=== PATIENT | male | born 1955 | race Caucasian/White ===

== ENCOUNTER 2017-04-26 17:30 | Emergency (ER) | payer BC ==
--- NOTE | 2017-04-26 17:45 | UC ---
Throat Pain/Nasal Rojelio HPI - HPI Summary HPI Summary: 62 YEAR OLD MALE PRESENTS WITH COMPLAINS OF COUGH AND SINUS CONGESTION. - History of Current Complaint Stated Complaint: SINUSES,COUGH Time Seen by Provider: 04/26/17 17:45 - Allergies/Home Medications Allergies/Adverse Reactions: Allergies Allergy/AdvReac Type Severity Reaction Status Date / Time No Known Allergies Allergy Verified 04/26/17 17:49 Home Medications: Home Medications Amlodipine Besylate-Benazepril [Lotrel 5-20 mg] 1 cap PO DAILY 04/26/17 [ History Confirmed 04/26/17] Loratadine [Claritin 10 MG CAP] 10 mg PO DAILY 04/26/17 [History Confirmed 04/26] Metoprolol Succinate XL TAB* [Toprol XL TAB*] 50 mg PO DAILY 04/26/17 [History Confirmed 04/26/17] Pravastatin (NF) [Pravachol (NF)] 10 mg PO 1700 04/26/17 [History Confirmed 03/08] PMH/Surg Hx/FS Hx/Imm Hx - Surgical History Surgical History: Yes Surgery Procedure, Year, and Place: 2003 Colon resection - Social History Alcohol Use: None Substance Use Type: None Smoking Status (MU): Never Smoked Tobacco Review of Systems Constitutional: Negative Skin: Negative Eyes: Negative ENT: Sinus Congestion Respiratory: Cough Cardiovascular: Negative Gastrointestinal: Negative Genitourinary: Negative Motor: Negative Neurovascular: Negative Musculoskeletal: Negative Neurological: Negative Psychological: Negative All Other Systems Reviewed And Are Negative: Yes Physical Exam Triage Information Reviewed: Yes Eye Exam: Normal ENT: Positive: Pharyngeal erythema, Nasal congestion Dental Exam: Normal Neck exam: Normal Neck: Positive: 1 Respiratory: Positive: Wheezing Cardiovascular Exam: Normal Abdominal Exam: Normal Musculoskeletal Exam: Normal Neurological Exam: Normal Psychological Exam: Normal Skin Exam: Normal Throat Pain/Nasal Course/Dx - Differential Dx/Diagnosis Provider Diagnoses: SINUSITIS. COUGH Discharge - Discharge Plan Condition: Stable Disposition: HOME Prescriptions: Amoxicillin/Clavulanate TAB* [Augmentin TAB 875*] 875 mg PO BID #14 tab Patient Education Materials: Sinusitis (ED) Referrals: Brandin Waters MD [Primary Care Provider] -
[2017-04-26 17:49] VITALS: BP 130/86
== END 2017-04-26 18:14 | disposition home or self-care (01) ==
LOC: UCCORT 17:30
DX: J32.9 Chronic sinusitis, unspecified (principal); R05 Cough
CPT/HCPCS: 99212; G0463

== ENCOUNTER 2017-05-03 07:53 | Emergency (ER) | payer BC ==
[2017-05-03 08:19] VITALS: BP 119/71
--- NOTE | 2017-05-03 10:23 | UC ---
UC General HPI - HPI Summary HPI Summary: 62 yo gentleman presents for re-evaluation sinus symptoms. Reports that he just completed a 7 day augmentin script, with significant improvement in sinusitis sx, but feels that it still is not complete. Sx include - yellow nasal drainage, congestion, left facial / maxillary pain, cough. No rash. No sob / cp / palpitations. GI ok, has been tolerating augmentin well. No other sx reported. - History of Current Complaint Chief Complaint: UCRespiratory Stated Complaint: COUGH CONGESTION Time Seen by Provider: 05/03/17 08:06 Hx Obtained From: Patient Pain Intensity: 0 - Allergy/Home Medications Allergies/Adverse Reactions: Allergies Allergy/AdvReac Type Severity Reaction Status Date / Time No Known Allergies Allergy Verified 05/03/17 08:05 PMH/Surg Hx/FS Hx/Imm Hx Previously Healthy: Yes - see hpi, rx for htn, inc chol - Surgical History Surgical History: Yes Surgery Procedure, Year, and Place: 2003 Colon resection - Social History Alcohol Use: None Substance Use Type: None Smoking Status (MU): Never Smoked Tobacco Review of Systems Constitutional: Negative Skin: Negative Eyes: Negative ENT: Nasal Discharge, Sinus Congestion, Sinus Pain/Tenderness Respiratory: Cough Cardiovascular: Negative Gastrointestinal: Negative Genitourinary: Negative Motor: Negative Neurovascular: Negative Musculoskeletal: Negative Neurological: Negative Psychological: Negative All Other Systems Reviewed And Are Negative: Yes Physical Exam Triage Information Reviewed: Yes Appearance: Well-Nourished Vital Signs: Initial Vital Signs Temp 97.6 F 05/03/17 07:59 Pulse 88 05/03/17 07:59 Resp 20 05/03/17 07:59 BP 119/71 05/03/17 07:59 Pulse Ox 97 05/03/17 07:59 Vital Signs Reviewed: Yes Eye Exam: Normal - grossly normal ENT: Positive: Nasal congestion, TM dull, Other: - subj left max tenderness Neck exam: Normal Neck: Positive: Supple Respiratory Exam: Normal Respiratory: Positive: Chest non-tender, Lungs clear, Normal breath sounds, No respiratory distress Cardiovascular Exam: Normal Cardiovascular: Positive: RRR, No Murmur, Pulses Normal, Brisk Capillary Refill Abdominal Exam: Normal Musculoskeletal Exam: Normal - grossly normal Neurological Exam: Normal - nonfocal gross exam Psychological Exam: Normal - converses easily and appropriately Skin Exam: Normal - no visible or reported rash Course/Dx - Course Course Of Treatment: no new problems. I agree with extension of abx. Encouraged probiotic and / or yogurt, d/w pt. Seek medical attention if sx remain or worsen by completion of abx. Questions answered as posed to the best of my ability. - Differential Dx - Multi-Symptom Provider Diagnoses: sinusitis Discharge - Discharge Plan Condition: Stable Disposition: HOME Prescriptions: Amoxicillin/Clavulanate TAB* [Augmentin TAB 875*] 875 mg PO BID #28 tab Patient Education Materials: Sinusitis (ED) Referrals: Brandin Waters MD [Primary Care Provider] - Additional Instructions: Follow up with Dr. Waters per routine. Seek medical attention for worse or new problems, especially if symptoms not resolved in 2 weeks.
== END 2017-05-03 08:22 | disposition home or self-care (01) ==
LOC: UCCORT 07:53
DX: J32.9 Chronic sinusitis, unspecified (principal)
CPT/HCPCS: 99212; G0463

== ENCOUNTER 2019-12-21 16:14 | Emergency (ER) | payer BC ==
--- NOTE | 2019-12-21 16:37 | UC ---
Knee Pain HPI - HPI Summary HPI Summary: Patient is a 64 year old male , who present today to the urgent care with left knee for past 2 week. He denies any injury or trauma but reports that he woke up with incredible pain to left knee 2 weeks ago. There was associated swelling and pain to the point that he was limping .overall he was getting better but today he twisted it while coming on the driveway and now it's significantly worse. Painful at rest and improves with walking. Took ibuprofen 800 mg and still has lot of pain. Denies any prior history of left knee pain. He has a history of right knee medial meniscus injury status post arthroscopy. - History of Current Complaint Stated Complaint: INJURY LEFT KNEE Time Seen by Provider: 12/21/19 16:35 Hx Obtained From: Patient - Allergies/Home Medications Allergies/Adverse Reactions: Allergies Allergy/AdvReac Type Severity Reaction Status Date / Time No Known Allergies Allergy Verified 12/21/19 16:40 Home Medications: Home Medications Aspirin 81 1 tab PO DAILY 07/28/14 [History Confirmed 12/21/19] Amlodipine Besylate/Benazepril [Lotrel 5-20 mg] 1 cap PO BID 04/26/17 [History Confirmed 12/21/19] Metoprolol Succinate XL TAB* [Toprol XL TAB*] 50 mg PO DAILY 04/26/17 [History Confirmed 12/21/19] Pravastatin (NF) [Pravachol (NF)] 10 mg PO 1700 04/26/17 [History Confirmed ] PMH/Surg Hx/FS Hx/Imm Hx - Additional Past Medical History Additional PMH: Past Medical History : Hypertension, colon cancer, prostate cancer, skin cancer Past Surgical History: Colon resection in 2003 Family History : non contributory for arthritis. paternal colon cancer. Social History : No alcohol, non smoker, no drug use. Previously Healthy: Yes - Surgical History Surgical History: Yes Surgery Procedure, Year, and Place: 2003 Colon resection - Family History Known Family History: Positive: Non-Contributory - Social History Alcohol Use: None Substance Use Type: None Smoking Status (MU): Never Smoked Tobacco Review of Systems All Other Systems Reviewed And Are Negative: Yes Constitutional: Positive: Negative Skin: Positive: Negative Eyes: Positive: Negative ENT: Positive: Negative Respiratory: Positive: Negative Cardiovascular: Positive: Negative Gastrointestinal: Positive: Negative Genitourinary: Positive: Negative Motor: Positive: Negative Neurovascular: Positive: Negative Musculoskeletal: Positive: Arthralgia - left knee, Decreased ROM Neurological/Mental Status: Positive: Negative Psychological: Positive: Negative Is Patient Immunocompromised?: No Physical Exam - Summary Physical Exam Summary: Vital Signs Reviewed: Yes A+Ox3, no distress Eyes: Conjunctiva Clear ENT: Hearing grossly normal neck: supple Respiratory: Positive: No respiratory distress, No accessory muscle use Cardiovascular: skin color reflect adequate perfusion Neurological: Positive: Alert, ambulatory without difficulty Psychological: Positive: Normal Response To Family Skin: Positive: no rash, no ecchymosis Musculoskeletal exam: Gait: Walks with a antalgic gait Left Knee: Insp/Palp: No deformity. moderate effusion. Tenderness of the lateral joint line, medial joint line. Strength: Quadriceps 5/5 , No hamstring tightness. ROM: limited and and painful, 0- 90 Special Tests: limited testing due to pain . Valgus stress test at 0 and 30 degrees flexion is negative. Varus stress test at 0 and 30 degrees flexion is negative. Kelly's test is painful. Triage Information Reviewed: Yes Vital Signs Reviewed: Yes Procedures - Procedure Summary Procedure Summary: Procedure Note Left knee arthrocentesis and corticosteroid injection: I discussed risks ( including pain, infection, bleeding), benefits, and alternatives (including not injecting). Informed consent was obtained from the patient. Prior to the injection, a time out was performed. Patient was placed in the supine position. After prepping the skin with alcohol and under sterile conditions , 42 cc of straw-colored synovial fluid was drained left knee after local anesthesia with 1% lidocaine after which left knee was injected with 5cc 1% preservative free lidocaine without epinephrine, and 1cc kenalog (40mg / cc) .. Patient tolerated procedure well. No immediate complications were noted. Patient will report immediately with any signs of infection. Post injection instructions were given. Patient will apply ice to the involved area and avoid any exacerbating activities for the next few days Diagnostics - Radiology No standard instances Radiology Interpretation Completed By: Radiologist - Xrays left knee: Degenerative changes of the left knee include narrowing of the medial compartment. There is narrowing of the patellofemoral joint with sclerotic change of the articulating surfaces of the patellofemoral joint. There is superior pole osteophyte formation. On the AP view and the sunrise view, the patella appears somewhat displaced laterally. On the sunrise view there is more advanced sclerotic degenerative change of the lateral femoral condyle as well as osteophyte formation along the lateral margin of the patellofemoral joint. There is a small joint effusion. The bones are otherwise intact and anatomically aligned. IMPRESSION: Degenerative changes as described above as well as findings indicating lateral displacement of the patella. Please correlate to the patellar tracking syndrome. If the patient's symptoms persist, follow-up imaging is recommended. Knee Pain Course/Dx - Course Course Of Treatment: xrays of left knee: Degenerative changes of the left knee include narrowing of the medial compartment. There is narrowing of the patellofemoral joint with sclerotic change of the articulating surfaces of the patellofemoral joint. There is superior pole osteophyte formation. On the AP view and the sunrise view , the patella appears somewhat displaced laterally. On the sunrise view there is more advanced sclerotic degenerative change of the lateral femoral condyle as well as osteophyte formation along the lateral margin of the patellofemoral joint. There is a small joint effusion. The bones are otherwise intact and anatomically aligned. IMPRESSION: Degenerative changes as described above as well as findings indicating lateral displacement of the patella. Please correlate to the patellar tracking syndrome. If the patient's symptoms persist, follow-up imaging is recommended. Symptoms consistent with left knee joint osteoarthritis flare . We discussed further treatment options and alternatives and he opted to proceed with left knee arthrocentesis and cortical steroid injection. Procedure Note Left knee arthrocentesis and corticosteroid injection: I discussed risks ( including pain, infection, bleeding), benefits, and alternatives (including not injecting). Informed consent was obtained from the patient. Prior to the injection, a time out was performed. Patient was placed in the supine position. After prepping the skin with alcohol and under sterile conditions , 42 cc of straw-colored synovial fluid was drained left knee after local anesthesia with 1% lidocaine after which left knee was injected with 5cc 1% preservative free lidocaine without epinephrine, and 1cc kenalog (40mg / cc) .. Patient tolerated procedure well. No immediate complications were noted. Patient will report immediately with any signs of infection. Post injection instructions were given. Patient will apply ice to the involved area and avoid any exacerbating activities for the next few days Plan to have him follow-up with orthopedics - Differential Dx/Diagnosis Provider Diagnosis: Osteoarthritis of left knee Discharge ED - Sign-Out/Discharge Documenting (check all that apply): Patient Departure All imaging exams completed and their final reports reviewed: Yes - Discharge Plan Condition: Stable Disposition: HOME Patient Education Materials: Osteoarthritis (ED) Referrals: Brandin Waters MD [Primary Care Provider] - 1 Week Hansa Meeks MD [Medical Doctor] - 2 Weeks Additional Instructions: Ice and ibuprofen as needed for pain control . Follow up with your primary care doctor as scheduled on Monday Please follow up with orthopedics for the consult Patients blood pressure slightly high in Urgent care today , plan follow up with PCP for better control within 4 weeks Return to Urgent care / ER if symptoms get worse. - Billing Disposition and Condition Condition: STABLE Disposition: Home
[2019-12-21 16:40] VITALS: BP 156/91
[2019-12-21] MEDS ORDERED: Lidocaine 1% MPF ** 5 ML VIAL INJ ONE (17:28)
[2019-12-21] MEDS ORDERED: Triamcinolone Acetonide* 40 MG/ML 1 ML VIAL INTRAARTIC ONE (17:29)
== END 2019-12-21 18:15 | disposition home or self-care (01) ==
LOC: UCCORT 16:14
DX: M17.12 Unilateral primary osteoarthritis, left knee (principal); I10 Essential (primary) hypertension; Z85.038 Personal history of other malignant neoplasm of large intestine; Z79.82 Long term (current) use of aspirin; Z85.46 Personal history of malignant neoplasm of prostate; Z85.828 Personal history of other malignant neoplasm of skin
CPT/HCPCS: 20610; 99211; G0463; J3301